=== PATIENT | female | born 1990 | race Caucasian/White ===

== ENCOUNTER 2017-07-24 11:01 | Emergency (ER) | payer SELFPAY ==
[~2017-07-24] VITALS: Ht 162.6 cm; Wt 65.2 kg
[2017-07-24 11:03] VITALS: BP 157/87; PULSE 91; RESP 16; TEMP 98.2; O2SAT 100
[2017-07-24 11:25] LABS: BLOOD, URINE LARGE (NEG); GLUCOSE,URINE NEG (NEG); KETONE, URINE TRACE mg/dL (NEG); NITRITE,URINE POS (NEG)
[2017-07-24 11:26] LABS: METHOD OF COLLECTION CLEAN CATCH; URINE COLOR YELLOW (YELLW/STRAW)
[2017-07-24 11:36] LABS: BACTERIA, URINE MOD /hpf; COMMENT (UR) CULTURE INDICATED; COMMENT2 (UR) MUCOUS PRESENT; CULTURE IF INDICATED CULTURE INDICATED; RBC, URINE 100-200 /hpf (0-3); SQUAMOUS EPITHELIAL CELL URINE > 8 /hpf (0-5)
[2017-07-24] MEDS ORDERED: CEPH-460 PO (11:43)
--- NOTE | 2017-07-24 11:43 | PD ---
HPI Chief Complaint: Complaint Time Seen by Provider: 11:19 Travel History International Travel<30 days: No Contact w/Intl Traveler<30days: No Traveled to known affect area: No History of Present Illness HPI 26-year-old female presents to the emergency room for evaluation of dysuria, hematuria, urgency, frequency, and right flank pain that started yesterday. Patient states symptoms started off as having cloudy urine developed rapidly. She states the right flank pain is mild, dull, achy, and only occurs with urination. She has not taken anything for symptoms. She drank cranberry juice last night. She felt chills this morning but has not actually taken her temperature. No history of recurrent UTI. No chronic medical conditions or daily medications. Patient is having sex without protection. PFSH Past Medical History Medical History: Denies Significant Hx Diminished Hearing: No Tetanus Vaccination: Unknown ?: Not LMP: 07/22/17 Past Surgical History Surgical History: No Previous Surgery Social History Alcohol Use: Yes (SOC) Tobacco Use: Yes (1 PPD) Substance Use: No Allergies-Medications (Allergen,Severity, Reaction): Coded Allergies: Sulfa (Sulfonamide Antibiotics) (Verified Allergy, Severe, 07/24/17) Reported Meds & Prescriptions Reported Meds & Active Scripts Active No Active Prescriptions or Reported Medications Review of Systems Except as stated in HPI: all other systems reviewed are Neg Physical Exam Narrative GENERAL: Well-nourished, well-developed female in no acute distress. Afebrile. Ambulatory. SKIN: Focused skin assessment warm/dry. HEAD: Normocephalic. EYES: No scleral icterus. No injection or drainage. NECK: Supple, trachea midline. No JVD or lymphadenopathy. CARDIOVASCULAR: Regular rate and rhythm without murmurs, gallops, or rubs. RESPIRATORY: Breath sounds equal bilaterally. No accessory muscle use. GASTROINTESTINAL: Abdomen soft, non-tender, nondistended. No CVA tenderness. Data Data Last Documented VS Vital Signs Date Time Temp Pulse Resp B/P (MAP) Pulse Ox O2 Delivery O2 Flow Rate FiO2 07/24/17 11:03 98.2 91 16 157/87 (110) 100 Orders Orders Urinalysis - C+S If Indicated (07/24/17 11:08) Ed Urine Pregnancytest Poc (07/24/17 11:08) Urine Culture (07/24/17 11:11) Labs Laboratory Tests Test 07/24/17 11:11 Urine Collection Type CLEAN CATCH Urine Color YELLOW Urine Turbidity MOD Urine pH 6.0 Urine Specific [place] 1.022 Urine Protein 100 mg/dL Urine Glucose (UA) NEG mg/dL Urine Ketones TRACE mg/dL Urine Occult Blood LARGE Urine Nitrite POS Urine Bilirubin NEG Urine Leukocyte Esterase SMALL Urine RBC 100-200 /hpf Urine WBC 9-14 /hpf Urine WBC Clumps FEW Urine Squamous Epithelial Cells > 8 /hpf Urine Amorphous Sediment MOD Urine Bacteria MOD /hpf Microscopic Urinalysis Comment CULTURE INDICATED Urine Collection Time 1111 MDM Medical Decision Making Medical Screen Exam Complete: Yes Emergency Medical Condition: Yes Medical Record Reviewed: Yes Differential Diagnosis UTI, pyelonephritis, kidney stone Narrative Course 26-year-old female presents to the emergency room for evaluation of dysuria, urgency, frequency, hematuria, and right flank pain for the past 2 days. Denies history of fever. She is afebrile and well-appearing in the emergency room. Resting comfortably in bed. Urine test is negative. UA shows evidence of urinary tract infection. I have low suspicion for pyelonephritis or kidney stone as there is minimal to no CVA tenderness. Patient will be discharged with prescription for Keflex and told to follow up with a primary care physician or return for worsening symptoms. She understands and agrees to plan. Diagnosis Primary Impression: Urinary tract infection Qualified Codes: N30.01 - Acute cystitis with hematuria Referrals: Primary Care Physician Additional Instructions: Rest and drink plenty of fluids. Keflex as directed, until gone. Follow-up with a primary care physician. Return to the emergency room for worsening symptoms. Med/Other Pt SpecificInfo: Prescription(s) given Scripts No Active Prescriptions or Reported Meds Disposition: 01 DISCHARGE HOME Condition: Stable Sara Nazario Jul 24, 2017 11:43
== END 2017-07-24 11:50 | disposition home or self-care (01) ==
LOC: PHEFT 11:01
DX: N30.01 Acute cystitis with hematuria (principal); R30.0 Dysuria; F17.200 Nicotine dependence, unspecified, uncomplicated; B96.20 Unspecified Escherichia coli [E. coli] as the cause of diseases classified elsewhere
CPT/HCPCS: 81001; 84703; 87077; 87086; 87186; 99283

== ENCOUNTER 2017-07-29 15:30 | Emergency (ER) | payer SELFPAY ==
[~2017-07-29] VITALS: Ht 162.6 cm; Wt 64.6 kg
[~2017-07-29 15:30] MED LIST: CEPH-460 PO
[2017-07-29 15:32] VITALS: BP 152/73; PULSE 91; RESP 16; TEMP 98.5; O2SAT 98
[2017-07-29] MEDS ORDERED: SODIUM CHLOR 0.9% 1000 ML INJ 1,000 ML IV ONE ×2 (15:45)
[2017-07-29] MEDS ORDERED: ONDANSETRON HCL 4 MG/2 ML VIAL IV PUSH ONE (15:45)
--- NOTE | 2017-07-29 15:52 | PD ---
HPI Chief Complaint: GI Complaint Time Seen by Provider: 15:37 Travel History International Travel<30 days: No Contact w/Intl Traveler<30days: No Traveled to known affect area: No History of Present Illness HPI This 26-year-old female complaining of vomiting. She was here last Tuesday with symptoms of hematuria and frequency. She had a urinalysis which her urine has subsequently grown Escherichia coli which is sensitive to cefazolin. She says while she was taking the antibiotics she felt a little bit nauseated. She has not finished the course yet. This morning she started vomiting. She is also having some epigastric pain. She says she has vomited 6-7 times. She has no history of abdominal surgery. She had a negative test last Tuesday and has not had intercourse since then. He had some right flank pain on Tuesday which has resolved. The pain was not severe PFSH Past Medical History Diminished Hearing: No ?: Not Social History Alcohol Use: Yes (SOC) Tobacco Use: Yes (1 PPD) Substance Use: No Allergies-Medications (Allergen,Severity, Reaction): Coded Allergies: Sulfa (Sulfonamide Antibiotics) (Verified Allergy, Severe, 07/29/17) Reported Meds & Prescriptions Reported Meds & Active Scripts Active Keflex (Cephalexin) 500 Mg Cap 500 Mg PO Q12H 7 Days Review of Systems General / Constitutional: No: Fever, Chills Eyes: No: Diploplia HENT: No: Headaches Cardiovascular: No: Chest Pain or Discomfort Respiratory: No: Cough, Shortness of Breath Gastrointestinal: Positive: Nausea, Vomiting, Abdominal Pain, No: Diarrhea Genitourinary: No: Frequency Musculoskeletal: No: Myalgias, Arthralgias Skin: No Rash, No Itching Neurologic: No: Weakness Hematologic/Lymphatic: No: Easy Bruising Physical Exam Narrative GENERAL: A little female SKIN: Focused skin assessment warm/dry. HEAD: Atraumatic. Normocephalic. EYES: Pupils equal and round. No scleral icterus. No injection or drainage. ENT: No nasal bleeding or discharge. Mucous membranes pink and moist. NECK: Trachea midline. No JVD. CARDIOVASCULAR: Regular rate and rhythm. No murmur appreciated. RESPIRATORY: No accessory muscle use. Clear to auscultation. Breath sounds equal bilaterally. GASTROINTESTINAL: Abdomen soft, there is some mild epigastric tenderness, nondistended. Hepatic and splenic margins not palpable. MUSCULOSKELETAL: No obvious deformities. No clubbing. No cyanosis. No edema. NEUROLOGICAL: Awake and alert. No obvious cranial nerve deficits. Motor grossly within normal limits. Normal speech. PSYCHIATRIC: Appropriate mood and affect; insight and judgment normal. Data Data Last Documented VS Vital Signs Date Time Temp Pulse Resp B/P (MAP) Pulse Ox O2 Delivery O2 Flow Rate FiO2 07/29/17 15:32 98.5 91 16 152/73 (99) 98 Orders Orders Complete Blood Count With Diff (07/29/17 15:44) Comprehensive Metabolic Panel (07/29/17 15:44) Lipase (07/29/17 15:44) Urinalysis - C+S If Indicated (07/29/17 15:44) Ns (Bolus) Inj (07/29/17 15:45) Ondansetron Inj (Zofran Inj) (07/29/17 15:45) Ns (Bolus) Inj (07/29/17 15:45) MDM Medical Decision Making Medical Screen Exam Complete: Yes Emergency Medical Condition: Yes Medical Record Reviewed: Yes Differential Diagnosis Differential includes adverse medication reaction, gastritis, Narrative Course Patient be given IV fluids and Zofran. Her lab will be tested. We will reassess her urine to see if she needs to continue the antibiotics Diagnosis Primary Impression: Gastritis Pierce eVgas MD Jul 29, 2017 15:52
[2017-07-29 16:08] LABS: AUTOMATED NEUTROPHIL # 10.1 TH/MM3 (1.8-7.7); BASOPHIL % 0.1 % (0.0-2.0); EOSINOPHIL % 0.1 % (0.0-4.0); HEMOGLOBIN 14.8 GM/DL (11.6-15.3); LYMPH % 9.7 % (9.0-44.0); LYMPHOCYTE # 1.1 TH/MM3 (1.0-4.8); MEAN CELL VOLUME 91.8 FL (80.0-100.0); MEAN CORPUSCULAR HEMOGLOBIN 30.8 PG (27.0-34.0); MEAN CORPUSCULAR HGB CONC 33.5 % (32.0-36.0); MEAN PLATELET VOLUME 8.6 FL (7.0-11.0); MONO % 3.5 % (0.0-8.0); MONOCYTE # 0.4 TH/MM3 (0-0.9); NEUT % 86.6 % (16.0-70.0); PLATELET COUNT 205 TH/MM3 (150-450); RED CELL DISTRIBUTION WIDTH 11.6 % (11.6-17.2); WHITE BLOOD COUNT 11.6 TH/MM3 (4.0-11.0)
[2017-07-29 16:16] LABS: CHLORIDE 105 MEQ/L (98-107); SODIUM (NA) 139 MEQ/L (136-145)
[2017-07-29 16:19] LABS: CALCIUM 8.8 MG/DL (8.5-10.1)
[2017-07-29 16:20] LABS: ALBUMIN 4.1 GM/DL (3.4-5.0); BICARBONATE 25.5 MEQ/L (21.0-32.0); BLOOD UREA NITROGEN 9 MG/DL (7-18); GLUCOSE,RANDOM 96 MG/DL (74-106); LIPASE 94 U/L (73-393)
[2017-07-29 16:22] LABS: ALT (GPT) 29 U/L (10-53); AST (GOT) 14 U/L (15-37)
[2017-07-29 16:23] LABS: CREATININE 0.58 MG/DL (0.50-1.00); GLOMERULAR FILTRATION RATE 124 ML/MIN (>89)
[2017-07-29 16:24] LABS: TOTAL BILIRUBIN ADULT 0.3 MG/DL (0.2-1.0); TOTAL PROTEIN 8.1 GM/DL (6.4-8.2)
[2017-07-29 16:25] LABS: ALKALINE PHOSPHATASE 65 U/L (45-117)
[2017-07-29 16:49] LABS: BILIRUBIN, URINE NEG (NEG); GLUCOSE,URINE NEG (NEG); KETONE, URINE NEG (NEG); NITRITE,URINE NEG (NEG); PH, URINE 7.5 (5.0-8.5); URINE LEUKOCYTE ESTERASE NEG (NEG)
[2017-07-29 17:05] LABS: BLOOD, URINE TRACE (NEG)
[2017-07-29 17:06] LABS: URINE COLOR YELLOW (YELLW/STRAW); WBC, URINE 0-2 /hpf (0-5)
--- NOTE | 2017-07-29 17:06 | PD ---
Data Data Last Documented VS Vital Signs Date Time Temp Pulse Resp B/P (MAP) Pulse Ox O2 Delivery O2 Flow Rate FiO2 07/29/17 15:32 98.5 91 16 152/73 (99) 98 Orders Orders Complete Blood Count With Diff (07/29/17 15:44) Comprehensive Metabolic Panel (07/29/17 15:44) Lipase (07/29/17 15:44) Urinalysis - C+S If Indicated (07/29/17 15:44) Sodium Chlor 0.9% 1000 Ml Inj (Ns 1000 M (07/29/17 15:45) Ondansetron Inj (Zofran Inj) (07/29/17 15:45) Sodium Chlor 0.9% 1000 Ml Inj (Ns 1000 M (07/29/17 15:45) Ed Discharge Order (07/29/17 17:14) Labs Laboratory Tests Test 07/29/17 16:05 07/29/17 16:45 White Blood Count 11.6 TH/MM3 Red Blood Count 4.80 MIL/MM3 Hemoglobin 14.8 GM/DL Hematocrit 44.0 % Mean Corpuscular Volume 91.8 FL Mean Corpuscular Hemoglobin 30.8 PG Mean Corpuscular Hemoglobin Concent 33.5 % Red Cell Distribution Width 11.6 % Platelet Count 205 TH/MM3 Mean Platelet Volume 8.6 FL Neutrophils (%) (Auto) 86.6 % Lymphocytes (%) (Auto) 9.7 % Monocytes (%) (Auto) 3.5 % Eosinophils (%) (Auto) 0.1 % Basophils (%) (Auto) 0.1 % Neutrophils # (Auto) 10.1 TH/MM3 Lymphocytes # (Auto) 1.1 TH/MM3 Monocytes # (Auto) 0.4 TH/MM3 Eosinophils # (Auto) 0.0 TH/MM3 Basophils # (Auto) 0.0 TH/MM3 CBC Comment DIFF FINAL Differential Comment Blood Urea Nitrogen 9 MG/DL Creatinine 0.58 MG/DL Random Glucose 96 MG/DL Total Protein 8.1 GM/DL Albumin 4.1 GM/DL Calcium Level 8.8 MG/DL Alkaline Phosphatase 65 U/L Aspartate Amino Transf (AST/SGOT) 14 U/L Alanine Aminotransferase (ALT/SGPT) 29 U/L Total Bilirubin 0.3 MG/DL Sodium Level 139 MEQ/L Potassium Level 4.0 MEQ/L Chloride Level 105 MEQ/L Carbon Dioxide Level 25.5 MEQ/L Anion Gap 9 MEQ/L Estimat Glomerular Filtration Rate 124 ML/MIN Lipase 94 U/L Urine Collection Type VOIDED Urine Color YELLOW Urine Turbidity CLEAR Urine pH 7.5 Urine Specific [place] 1.020 Urine Protein NEG mg/dL Urine Glucose (UA) NEG mg/dL Urine Ketones NEG mg/dL Urine Occult Blood TRACE Urine Nitrite NEG Urine Bilirubin NEG Urine Leukocyte Esterase NEG Urine WBC 0-2 /hpf Urine Squamous Epithelial Cells >8 /hpf Urine Bacteria FEW /hpf Microscopic Urinalysis Comment CULT NOT INDICATED MDM Medical Record Reviewed: Yes Supervised Visit with SOPHIE: No Narrative Course CBC & BMP Diagram 07/29/17 16:05 Total Protein 8.1, Albumin 4.1, Calcium Level 8.8, Alkaline Phosphatase 65, Aspartate Amino Transf (AST/SGOT) 14 L, Alanine Aminotransferase (ALT/SGPT) 29, Total Bilirubin 0.3 Lipase 94 UA: shows no UTI Please refer to prior provider's note. Pt resting comfortably at 440PM. Pt ambulated to restroom without difficulty. No interval urination. Pt to dc Keflex bc UA negative. Reglan script. Diagnosis Primary Impression: Nausea & vomiting Qualified Codes: R11.2 - Nausea with vomiting, unspecified Additional Impression: Medication side effect Qualified Codes: T88.7XXA - Unspecified adverse effect of drug or medicament, initial encounter Additional Instruction: You have a choice when it comes to health care, and we are glad that you chose [facility]. Hopefully, we have met your expectations on today's visit. You are welcome to return to [facility] at any time, as we are committed to meeting the health care needs of our community. Med/Other Pt SpecificInfo: Prescription(s) given Scripts Metoclopramide (Reglan) 10 Mg Tab 10 MG PO TIDAC Y for NAUSEA OR VOMITING, #10 TAB 0 Refills Prov: Nilton Watkins MD 07/29/17 Disposition: 01 DISCHARGE HOME Condition: Stable Nilton Watkins MD Jul 29, 2017 17:06
[2017-07-29 17:07] LABS: BACTERIA, URINE FEW /hpf; SQUAMOUS EPITHELIAL CELL URINE >8 /hpf (0-5)
[2017-07-29] MEDS ORDERED: REGL10TA5 PO (17:12)
== END 2017-07-29 17:41 | disposition home or self-care (01) ==
LOC: PHED 15:30
DX: R11.2 Nausea with vomiting, unspecified (principal)
CPT/HCPCS: 80053; 81001; 83690; 85025; 96361; 96374; 99284; J2405; J7030